=== PATIENT | female | born 1995 | race Caucasian/White ===

== ENCOUNTER 2018-10-23 21:57 | Inpatient (IN) | payer MEDICAID ==
[~2018-10-23] VITALS: Ht 167.6 cm; Wt 94.9 kg
--- NOTE | 2018-10-24 12:14 | NUR ---
Admission note: Client arrived via Ambulance at 1200 hours this date. Client was wanded, searched and her property inventoried by [employer] x 2. Cigarettes and some chords were identified as contraband and stored for safety. Client was escorted to the shower and a skin check was performed utilizing two female RN's. which yielded no findings. Client is alert and oriented x 4 and aware of the circumstances of this admission. Original 5150 accompanied client. Admission assessment performed per protocol. Mrsa swab was collected and sent to Lab for culture. Upon interview, client states, " I was drunk when I said all those things". and " I have three kids, I will not hurt myself". Client readily contracted for safe unit behaviors and has been compliant with the admission process. Addendum: 10/24/18 at 1243 by Ramon Pinto RN Addendum: Vital signs on admit were BP= 101/63, P=84, R= 14 and T+ 97.8, O2 Sats were 97% on RA.
[2018-10-24] MEDS ORDERED: acetaminophen 325mg tablet PO PRN ×2 (12:25)
[2018-10-24] MEDS ORDERED: loperamide 2mg capsule PO PRN (12:25)
[2018-10-24] MEDS ORDERED: magnesium hydroxide 30ml (MOM) UD suspension PO PRN (12:25)
[2018-10-24] MEDS ORDERED: mag hydrox/Alum hydrox/simeth 30ml oral suspension PO PRN (12:25)
[2018-10-24] MEDS ORDERED: CEPH-572 PO (12:49)
[2018-10-24] MEDS: benzocaine/menthol oral lozeng 1 EACH BOX MM PRN (17:04)
[2018-10-24] MEDS: diphenhydrAMINE 25mg capsule PO PRN (17:04)
[2018-10-24] MEDS ORDERED: traZODone 50mg tablet PO PRN (18:00)
[2018-10-24] MEDS ORDERED: LORazepam 1 MG tablet PO PRN (18:00)
[2018-10-24 19:57] VITALS: BP 116/70
[2018-10-24] MEDS ORDERED: traZODone 50mg tablet PO SCH (20:00)
[2018-10-24] MEDS: cephalexin 500mg capsule PO SCH (20:39)
[2018-10-24] MEDS: lactobacillus rhamnosus 10,000 MMU CELLS/CAPSULE PO SCH (20:39)
--- NOTE | 2018-10-25 04:07 | NUR ---
Nursing Progress Note: Legal hold: 5150 Client on involuntary status for DTS. Report received from SHIRAZ Haines with use of SBAR. Why are they here: Ms. Sahu is a 23 year old woman with a history of trauma, depression, etoh use who is 3 weeks post with her 3rd child. She was inebriated (LDF=586) when she was brought to the emergency room by her (Corey's) aunt and stating she wanted to and stated she was walking into traffic in an effort to end her life. Ms. Sahu feels her depression has been worsening over several years as the stress of multiple children and her marital problems are both increasing. She has had a hard childhood (raised by extended family and lost her mother to murder at age 12 and had several years in foster homes) and seems to be facing her problem now more constructively. She is denying suicidal ideation and worried about her and her other children and is facing a separation and likely divorce. This does not seem like a post depression but a continuation of one long depressive episode.. Assessment What has happened this shift: The patient was found in her room for 1:1. She agrees to physical assessment, but is not willing to speak to this development writer about recent events. As for her reason for being here, she stated, "I just got drunk and said some stupid things." The patient reports that all she's done is be a mother. "I want more...I'm gonna go to school eventually." The patient received a phone call, and spent the rest of the evening on the phone. She took HS meds then went to bed. She's looking forward to starting an anti-depressant. S/I, H/I: SI A/VH: Denies Sleep: New admit ADL's: Self Group attendance: No groups at night Were meds taken: Yes Any med S/E None reported or observed Mental Status Exam Appearance: Well groomed young lady with hair pulled back, wearing green scrubs Eye contact: Avoids Behavior: Isolative Speech: Clear. Normal rate/volume Mood: Depressed Affect: Flat Thought process: Linear Thought Content: Wants to see her children Cognition: A/Ox4 Insight: fair Judgment: Poor Interventions PRN's used: None Therapeutic interventions: 1:1 therapeutic assessment, education on unit rules and procedures, administration/education/monitoring, encouraged independent performance of ADL's, limit setting, fall risk precautions followed; Q15 min safety checks. Restraints/seclusion/emergency medication: N/A Justification of Continued Inpatient Treatment: Pt is depressed and a DTS requiring medication management in a therapeutic environment.
[2018-10-25 07:36] LABS: CHOL/HDL RATIO 2.6 (0.00-4.99); CHOLESTEROL 143 MG/DL (0-200); HDL CHOLESTEROL 55 MG/DL (35-60); LDL CHOLESTEROL 80 MG/DL (50-100); TRIGLYCERIDES 99 MG/DL (20-135)
[2018-10-25 07:45] LABS: HEMOGLOBIN A1C 5.5 % (4.5-6.2)
[2018-10-25 07:54] VITALS: BP 107/60
[2018-10-25] MEDS: lactobacillus rhamnosus 10,000 MMU CELLS/CAPSULE PO SCH (08:10)
[2018-10-25] MEDS: cephalexin 500mg capsule PO SCH ×2 (08:10→18:40)
[2018-10-25] MEDS: diphenhydrAMINE 25mg capsule PO PRN (09:37)
[2018-10-25] MEDS: benzocaine/menthol oral lozeng 1 EACH BOX MM PRN (09:38)
[2018-10-25] MEDS ORDERED: citalopram 20mg tablet PO SCH (14:20)
[2018-10-25] MEDS ORDERED: citalopram 20mg tablet PO ONE (15:20)
--- NOTE | 2018-10-25 15:39 | NUR ---
Nursing Progress Note: Legal hold: 5150 Client on involuntary status for DTS. Report received from SHIRAZ Haines with use of SBAR. Why are they here: Ms. Sahu is a 23 year old woman with a history of trauma, depression, etoh use who is 3 weeks post with her 3rd child. She was inebriated (DTT=251) when she was brought to the emergency room by her (Corey's) aunt and stating she wanted to and stated she was walking into traffic in an effort to end her life. Ms. Sahu feels her depression has been worsening over several years as the stress of multiple children and her marital problems are both increasing. She has had a hard childhood (raised by extended family and lost her mother to murder at age 12 and had several years in foster homes) and seems to be facing her problem now more constructively. She is denying suicidal ideation and worried about her and her other children and is facing a separation and likely divorce. This does not seem like a post depression but a continuation of one long depressive episode.. Assessment What has happened this shift: Patient was up and walking around at change of shift. Patient came up to nurse and asked to speak to the Doctor and school social worker because she wants to go home. RN advised patient that the doctor is not in yet and RN is not sure about the Operations Consultant's schedule because of the SW shortage. RN performed 1:1 with the patient in the afternoon. Patient states she is glad she started the anti-depressant. Patient states she is not feeling depressed and is no longer suicidal. Patient states the Doctor told her she will be going home tomorrow. Patient went to morning group but took a shower during afternoon group. Patient took a nap today and continues to pump breast milk. S/I, H/I: denies A/VH: Denies Sleep: New admit ADL's: Self Group attendance: Morning group Were meds taken: Yes Any med S/E None reported or observed Mental Status Exam Appearance: Clean and neat Eye contact: good Behavior: Keeps to self Speech: Clear. Normal rate/volume Mood: Pleasant Affect: flat Thought process: Linear Thought Content: Wants to go home and see her children Cognition: A/Ox4 Insight: fair Judgment: fair to poor. Interventions PRN's used: None Therapeutic interventions: 1:1 therapeutic assessment, education on unit rules and procedures, administration/education/monitoring, encouraged independent performance of ADL's, limit setting, fall risk precautions followed; Q15 min safety checks. Restraints/seclusion/emergency medication: N/A Justification of Continued Inpatient Treatment: Pt is depressed and a DTS requiring medication management in a therapeutic environment.
[2018-10-25] MEDS ORDERED: TRAZ-219 PO (18:27)
[2018-10-25] MEDS ORDERED: ESCI10TA54 PO (18:27)
[2018-10-25] MEDS ORDERED: LACT1CAP26 PO (18:27)
--- NOTE | 2018-10-25 18:48 | NUR ---
DISCHARGE NOTE Patient received phone call that her 1 year old is being flown to [facility] for an injury, and was discharged in order to be transported to meet her child at the hospital. Pt safe for discharge; no longer a danger to self. Pt's belongings inventoried and sent with her along with prescriptions and follow up information. Transported by taxi to [place]. Pt ambulated of the unit, escorted to the taxi by [facility].
[2018-10-26] MEDS ORDERED: citalopram 20mg tablet PO SCH (08:00)
== END 2018-10-25 18:37 | disposition home or self-care (01) | DRG 751 ==
LOC: ADULT MH 10-24 12:07
PROVIDERS: ADMIT Psychiatry & Neurology Psychiatry; ATTEND Psychiatry & Neurology Psychiatry
DX: F33.2 Major depressive disorder, recurrent severe without psychotic features (principal); E11.9 Type 2 diabetes mellitus without complications; R45.851 Suicidal ideations; E28.2 Polycystic ovarian syndrome; F17.210 Nicotine dependence, cigarettes, uncomplicated; F43.12 Post-traumatic stress disorder, chronic; I10 Essential (primary) hypertension; J45.909 Unspecified asthma, uncomplicated; K21.9 Gastro-esophageal reflux disease without esophagitis; Z88.8 Allergy status to other drugs, medicaments and biological substances; Z87.820 Personal history of traumatic brain injury; Z81.8 Family history of other mental and behavioral disorders; Z79.899 Other long term (current) drug therapy; Z65.3 Problems related to other legal circumstances; Z63.0 Problems in relationship with spouse or partner; Z59.0 Homelessness; N39.0 Urinary tract infection, site not specified; F10.10 Alcohol abuse, uncomplicated
CPT/HCPCS: 36415; 80061; 83036; 87081; Q0163